=== PATIENT | female | born 1970 | race Caucasian/White ===

== ENCOUNTER 2022-05-02 08:50 | Outpatient (CLI) | payer OTHER, SELFPAY ==
[2022-05-02 11:12] LABS: Chloride* 102 mmol/L (96-114); Potassium* 4.7 mmol/L (3.6-5.1); Sodium* 138 mmol/L (135-149)
[2022-05-02 11:15] LABS: Blood Urea Nitrogen* 17 mg/dL (7-30); Carbon Dioxide* 29 mmol/L (20-32); Cholesterol* 176 mg/dL (90-199); Creatinine* 0.8 mg/dL (0.5-1.5); Estimated Glomerular Filt Rate 89 ml/min
[2022-05-02 11:16] LABS: Calcium* 9.8 mg/dL (8.4-10.6); Glucose* 107 mg/dL (60-115); HDL Cholesterol* 57 mg/dL (>=50); LDL Cholesterol Calculated 102 mg/dL (<100); Triglycerides* 83 mg/dL (40-149)
== END 2022-05-02 08:51 | disposition home or self-care (01) ==
PROVIDERS: PCP Internal Medicine; Visit Provider Internal Medicine
DX: Z01.419 Encounter for gynecological examination (general) (routine) without abnormal findings (principal); I10 Essential (primary) hypertension; E78.5 Hyperlipidemia, unspecified; E66.9 Obesity, unspecified; F41.9 Anxiety disorder, unspecified
CPT/HCPCS: 80048; 80061

== ENCOUNTER 2022-07-10 19:37 | Outpatient (CLI) | payer OTHER, SELFPAY | END 2022-07-10 19:38 | disposition home or self-care (01) | LOC: SLEEP 19:38 | PROVIDERS: PCP Internal Medicine; Visit Provider Internal Medicine | DX: G47.33 Obstructive sleep apnea (adult) (pediatric) (principal); E66.9 Obesity, unspecified | CPT/HCPCS: 95806 ==

== ENCOUNTER 2022-07-21 12:46 | Outpatient (CLI) | payer OTHER, SELFPAY ==
--- NOTE | 2022-07-21 13:00 | CRLHL7_ITS ---
For Patients: As a result of the Century Cures Act, medical imaging exams and procedure reports are released immediately into your electronic medical record. You may view this report before your referring provider. If you have questions, please contact your health care provider. BILATERAL SCREENING MAMMOGRAM WITH COMPUTER-AIDED DETECTION AND TOMOSYNTHESIS TECHNIQUE: CC and MLO views were obtained. These mammographic images have been obtained using full-field digital technique. These mammographic images were interpreted with the benefit of computer-aided detection. Breast Tomosynthesis was used in this interpretation. COMPARISON FILM: 05/30/21, 01/14/19, 01/07/18. FINDINGS: There are scattered areas of fibroglandular density IMPRESSION: There is no radiographic evidence for malignancy. ASSESSMENT: BI-RADS Category 1: Negative RECOMMENDATION: Routine screening mammogram in 1 year. A lay language report of this examination will be provided to the patient. Sam Mccray M.D. Diagnostic Radiologist [email or web address] HARJIT/Dictated by: Sam Mccray MD @ 07/24/2022 9:01:00 AM (Electronically Signed)
== END 2022-07-21 12:47 | disposition home or self-care (01) ==
LOC: MAMMO 12:47
PROVIDERS: PCP Internal Medicine; Visit Provider Internal Medicine
DX: Z12.31 Encounter for screening mammogram for malignant neoplasm of breast (principal)
CPT/HCPCS: 77063; 77067

== ENCOUNTER 2023-06-25 08:52 | Outpatient (CLI) | payer OTHER, SELFPAY | END 2023-06-25 08:53 | disposition home or self-care (01) | LOC: NFLDREF 06-27 18:21 | PROVIDERS: PCP Internal Medicine; Referring Provider Internal Medicine; Visit Provider Internal Medicine | DX: E78.5 Hyperlipidemia, unspecified (principal); E66.9 Obesity, unspecified | CPT/HCPCS: 80048; 80061 ==

== ENCOUNTER 2023-09-10 09:01 | Outpatient (CLI) | payer OTHER, SELFPAY ==
--- NOTE | 2023-09-10 09:15 | CRLHL7_ITS ---
For Patients: As a result of the Century Cures Act, medical imaging exams and procedure reports are released immediately into your electronic medical record. You may view this report before your referring provider. If you have questions, please contact your health care provider. BILATERAL DIGITAL SCREENING MAMMOGRAM WITH TOMOSYNTHESIS AND COMPUTER-AIDED DETECTION CLINICAL HISTORY: Routine screening exam. COMPARISON: 07/21/2022, 05/30/2021, 01/14/2019, 01/07/2018 TECHNIQUE: Digital mammogram in CC and MLO projections including computer-aided detection (CAD). Tomosynthesis utilized. BREAST COMPOSITION: There are areas of scattered fibroglandular density. FINDINGS: RIGHT Breast: No suspicious findings LEFT Breast: Focal asymmetric density lateral breast 5 cm from the nipple, CC view only. IMPRESSION: LEFT breast asymmetry/mass. RECOMMENDATIONS: Additional mammographic views of the LEFT breast including 3D spot compression CC and 3D true lateral. LEFT breast ultrasound may also be required. BI-RADS Category 0: Incomplete: Need Additional Imaging Evaluation and/or Prior Mammograms for Comparison [facility] will contact the patient for follow-up. A lay language report of this examination will be provided to the patient. Dictated by Sam Mccray MD @ 09/12/2023 10:15:13 AM jj/Dictated by: Sam Mccray MD @ 09/12/2023 10:15:00 AM (Electronically Signed)
== END 2023-09-10 09:02 | disposition home or self-care (01) ==
PROVIDERS: PCP Internal Medicine; Visit Provider Internal Medicine
DX: Z12.31 Encounter for screening mammogram for malignant neoplasm of breast (principal); N63.20 Unspecified lump in the left breast, unspecified quadrant
CPT/HCPCS: 77063; 77067

== ENCOUNTER 2023-09-19 10:26 | Outpatient (CLI) | payer OTHER, SELFPAY ==
--- NOTE | 2023-09-19 10:45 | CRLHL7_ITS ---
For Patients: As a result of the Cures Act, medical imaging exams and procedure reports are released immediately into your electronic medical record. You may view this report before your referring provider. If you have questions, please contact your health care provider. DIAGNOSTIC LEFT BREAST MAMMOGRAM WITH COMPUTER-AIDED DETECTION AND TOMOSYNTHESIS LEFT BREAST ULTRASOUND CLINICAL HISTORY: LEFT breast mass/asymmetry. COMPARISON: 09/10/2023, 07/21/2022, 05/30/2021, 01/14/2019. TECHNIQUE: Digital LEFT mammogram in 2 projections. Computer-aided detection and tomosynthesis were used. Real-time ultrasound imaging of LEFT breast with imaging documentation. BREAST COMPOSITION: There are scattered areas of fibroglandular density FINDINGS: Additional mammogram images demonstrate persistent small nodular density within the lateral LEFT breast. No architectural distortion or suspicious calcifications. Targeted LEFT breast ultrasound performed. At 2 o`clock 7 cm from the nipple, there is a circumscribed anechoic simple cyst with increased through transmission measuring 8 x 7 x 8 millimeters. No abnormal vascularity. IMPRESSION: Benign simple cyst LEFT breast 2 o`clock 7 cm from the nipple measuring 8 millimeters. No evidence of malignancy. RECOMMENDATIONS: Annual BILATERAL screening mammography. BI-RADS Category 2: Benign Results and recommendations discussed with the patient. A lay language report of this examination will be provided to the patient. Dictated by Sam Mccray MD @ 09/19/2023 11:53:54 AM/andreina HARJIT/Dictated by: Sam Mccray MD @ 09/19/2023 11:53:00 AM (Electronically Signed)
--- NOTE | 2023-09-19 11:15 | CRLHL7_ITS ---
For Patients: As a result of the Century Cures Act, medical imaging exams and procedure reports are released immediately into your electronic medical record. You may view this report before your referring provider. If you have questions, please contact your health care provider. PLEASE SEE LEFT BREAST DIAGNOSTIC MAMMOGRAM OF SAME DAY. CRL:[email or web address] HARJIT/Dictated by: Sam Mccray MD @ 09/19/2023 11:53:00 AM (Electronically Signed)
== END 2023-09-19 10:27 | disposition home or self-care (01) ==
LOC: MAMMO 10:27
PROVIDERS: PCP Internal Medicine; Visit Provider Internal Medicine
DX: N63.20 Unspecified lump in the left breast, unspecified quadrant (principal); N60.02 Solitary cyst of left breast; R92.8 Other abnormal and inconclusive findings on diagnostic imaging of breast
CPT/HCPCS: 76642; 77065; G0279

== ENCOUNTER 2024-05-23 07:55 | Outpatient (CLI) | payer OTHER, SELFPAY | END 2024-05-23 07:56 | disposition home or self-care (01) | LOC: NFLDREF 05-26 17:44 | PROVIDERS: PCP Internal Medicine; Referring Provider Internal Medicine; Visit Provider Internal Medicine | DX: E78.5 Hyperlipidemia, unspecified (principal); I10 Essential (primary) hypertension | CPT/HCPCS: 80048; 80061 ==

== ENCOUNTER 2024-11-03 11:22 | Outpatient (CLI) | payer OTHER, SELFPAY | END 2024-11-03 11:23 | disposition home or self-care (01) | LOC: MAMMO 11:23 | PROVIDERS: PCP Internal Medicine; Visit Provider Internal Medicine | DX: Z12.31 Encounter for screening mammogram for malignant neoplasm of breast (principal); N63.20 Unspecified lump in the left breast, unspecified quadrant | CPT/HCPCS: 77063; 77067 ==

== ENCOUNTER 2024-11-06 08:42 | Outpatient (CLI) | payer OTHER, SELFPAY ==
--- NOTE | 2024-11-06 08:45 | CRLHL7_ITS ---
For Patients: As a result of the Century Cures Act, medical imaging exams and procedure reports are released immediately into your electronic medical record. You may view this report before your referring provider. If you have questions, please contact your health care provider. DIGITAL DIAGNOSTIC LEFT MAMMOGRAM PERFORMED WITH TOMOSYNTHESIS AND COMPUTER-AIDED DETECTION LEFT BREAST ULTRASOUND CLINICAL HISTORY: LEFT breast mass/asymmetry. COMPARISON: 11/03/2024. TECHNIQUE: Digital LEFT mammogram in two projections. Tomosynthesis and CAD were used in this interpretation. Real-time ultrasound imaging of LEFT breast with imaging documentation. Scanning was performed by both the technologist and the radiologist. BREAST COMPOSITION: There are scattered areas of fibroglandular density. FINDINGS: 3D spot compression CC/MLO LEFT breast mammogram images submitted. Decreased conspicuity of previously noted asymmetric density. No architectural distortion or suspicious calcifications. Targeted LEFT breast ultrasound performed at 3 o`clock 6-8 cm from the nipple. Normal fibroglandular tissue is present. No suspicious findings. IMPRESSION: No evidence of malignancy. RECOMMENDATIONS: Routine screening mammography. A lay language report of this examination will be provided to the patient. BI-RADS Category 2: Benign Dictated by Sam Mccray MD @ 11/06/2024 11:16:53 AM jj/Dictated by: Sam Mccray MD @ 11/06/2024 11:16:00 AM (Electronically Signed)
--- NOTE | 2024-11-06 09:15 | CRLHL7_ITS ---
For Patients: As a result of the Cures Act, medical imaging exams and procedure reports are released immediately into your electronic medical record. You may view this report before your referring provider. If you have questions, please contact your health care provider. SEE DIGITAL DIAGNOSTIC LEFT MAMMOGRAM PERFORMED SAME DAY CRL:[email or web address]/Dictated by: Sam Mccray MD @ 11/06/2024 11:16:00 AM (Electronically Signed)
== END 2024-11-06 08:43 | disposition home or self-care (01) ==
LOC: MAMMO 08:42
PROVIDERS: PCP Internal Medicine; Visit Provider Internal Medicine
DX: N63.20 Unspecified lump in the left breast, unspecified quadrant (principal)
CPT/HCPCS: 76642; 77065; G0279

== ENCOUNTER 2025-01-26 10:01 | Outpatient (CLI) | payer OTHER, SELFPAY ==
[2025-01-30 09:37] LABS: HPV Source Cervical; HPV, High Risk by TMA Not Detected
== END 2025-01-26 10:02 | disposition home or self-care (01) ==
PROVIDERS: PCP Internal Medicine; Visit Provider Obstetrics & Gynecology
DX: Z12.4 Encounter for screening for malignant neoplasm of cervix (principal); Z11.51 Encounter for screening for human papillomavirus (HPV)
CPT/HCPCS: 87624; 87625; 88141; 88142

== ENCOUNTER 2025-07-20 15:35 | Outpatient (CLI) | payer OTHER, SELFPAY | END 2025-07-20 15:36 | disposition home or self-care (01) | PROVIDERS: PCP Internal Medicine; Visit Provider Internal Medicine | DX: I10 Essential (primary) hypertension (principal); E78.5 Hyperlipidemia, unspecified | CPT/HCPCS: 80048; 80061 ==